=== PATIENT | male | born 1955 | race Caucasian/White ===

== ENCOUNTER 2017-10-20 07:59 | Outpatient (CLI) | payer OTHER | END 2017-10-20 09:08 | disposition home or self-care (01) | LOC: LAB 07:59 | DX: R97.20 Elevated prostate specific antigen [PSA] (principal); R51 Headache; E78.4 Other hyperlipidemia; Z13.89 Encounter for screening for other disorder; Z12.11 Encounter for screening for malignant neoplasm of colon; Z12.5 Encounter for screening for malignant neoplasm of prostate; Z72.0 Tobacco use ==

== ENCOUNTER 2017-11-27 08:40 | Outpatient (CLI) | payer OTHER | END 2017-11-27 13:16 | disposition home or self-care (01) | LOC: LAB 08:40 | DX: N41.1 Chronic prostatitis (principal); R97.20 Elevated prostate specific antigen [PSA] ==

== ENCOUNTER 2017-11-30 09:10 | Outpatient (CLI) | payer OTHER | END 2017-11-30 09:27 | disposition home or self-care (01) | LOC: SONOGRAMA 09:10 → MAMO-SONO 10:15 | DX: N41.1 Chronic prostatitis (principal); R97.20 Elevated prostate specific antigen [PSA] ==

== ENCOUNTER 2018-01-05 09:28 | Outpatient (CLI) | payer OTHER | END 2018-01-05 09:59 | disposition home or self-care (01) | LOC: LAB 09:28 | DX: Z12.5 Encounter for screening for malignant neoplasm of prostate (principal) ==

== ENCOUNTER 2018-01-12 12:01 | Outpatient (CLI) | payer OTHER | END 2018-01-12 12:04 | disposition home or self-care (01) | LOC: LAB 12:01 | DX: N18.9 Chronic kidney disease, unspecified (principal) ==

== ENCOUNTER 2018-02-03 07:33 | Outpatient (CLI) | payer OTHER | END 2018-02-03 08:34 | disposition home or self-care (01) | LOC: LAB 07:33 | DX: R97.20 Elevated prostate specific antigen [PSA] (principal); N41.1 Chronic prostatitis ==

== ENCOUNTER → 2018-05-20 06:50 | Outpatient (CLI) | payer OTHER | END | disposition home or self-care (01) | LOC: LAB 06:50 | DX: E03.8 Other specified hypothyroidism (principal); Z01.811 Encounter for preprocedural respiratory examination; Z51.81 Encounter for therapeutic drug level monitoring ==

== ENCOUNTER 2018-06-17 07:22 | Outpatient (CLI) | payer OTHER | END 2018-06-17 07:34 | disposition home or self-care (01) | LOC: LAB 07:22 | DX: E03.8 Other specified hypothyroidism (principal); Z51.81 Encounter for therapeutic drug level monitoring; Z01.811 Encounter for preprocedural respiratory examination ==

== ENCOUNTER 2019-02-17 07:22 | Outpatient (CLI) | payer OTHER | END 2019-02-17 07:30 | disposition home or self-care (01) | LOC: LAB 07:22 | DX: Z01.812 Encounter for preprocedural laboratory examination (principal); Z01.811 Encounter for preprocedural respiratory examination; Z51.81 Encounter for therapeutic drug level monitoring; E03.8 Other specified hypothyroidism ==

== ENCOUNTER → 2019-12-23 08:22 | Outpatient (CLI) | payer OTHER | END | disposition home or self-care (01) | LOC: LAB 08:22 | PROVIDERS: ATTEND Urology | DX: N40.1 Benign prostatic hyperplasia with lower urinary tract symptoms (principal); E55.9 Vitamin D deficiency, unspecified; R39.12 Poor urinary stream; F41.8 Other specified anxiety disorders; R97.20 Elevated prostate specific antigen [PSA]; N41.1 Chronic prostatitis ==

== ENCOUNTER → 2020-08-07 08:31 | Outpatient (CLI) | payer OTHER | END | disposition home or self-care (01) | LOC: LAB 08:31 | PROVIDERS: ATTEND Urology | DX: N40.0 Benign prostatic hyperplasia without lower urinary tract symptoms (principal); E55.9 Vitamin D deficiency, unspecified; F41.9 Anxiety disorder, unspecified; R97.20 Elevated prostate specific antigen [PSA]; N41.1 Chronic prostatitis ==

== ENCOUNTER → 2020-09-17 07:13 | Outpatient (CLI) | payer OTHER | END | disposition home or self-care (01) | LOC: LAB 07:13 | PROVIDERS: ATTEND Urology | DX: N40.0 Benign prostatic hyperplasia without lower urinary tract symptoms (principal); F41.8 Other specified anxiety disorders; R97.20 Elevated prostate specific antigen [PSA]; N41.1 Chronic prostatitis ==

== ENCOUNTER → 2020-09-21 | Outpatient (CLI) | payer OTHER | END | disposition home or self-care (01) | LOC: LAB 07:35 | PROVIDERS: ATTEND General Practice | DX: R07.89 Other chest pain (principal); M54.5 Low back pain; Z11.4 Encounter for screening for human immunodeficiency virus [HIV]; Z11.3 Encounter for screening for infections with a predominantly sexual mode of transmission; Z12.11 Encounter for screening for malignant neoplasm of colon; Z13.228 Encounter for screening for other metabolic disorders; Z13.29 Encounter for screening for other suspected endocrine disorder; Z13.0 Encounter for screening for diseases of the blood and blood-forming organs and certain disorders involving the immune mechanism; Z12.5 Encounter for screening for malignant neoplasm of prostate; Z11.59 Encounter for screening for other viral diseases; Z00.01 Encounter for general adult medical examination with abnormal findings; M62.830 Muscle spasm of back; R97.20 Elevated prostate specific antigen [PSA] ==

== ENCOUNTER 2020-10-23 07:35 | Outpatient (CLI) | payer OTHER | END 2020-10-23 08:07 | disposition home or self-care (01) | LOC: TOM 07:35 | PROVIDERS: ATTEND General Practice | DX: K76.0 Fatty (change of) liver, not elsewhere classified (principal); K57.90 Diverticulosis of intestine, part unspecified, without perforation or abscess without bleeding; R10.84 Generalized abdominal pain; R80.8 Other proteinuria; R97.20 Elevated prostate specific antigen [PSA]; Z12.5 Encounter for screening for malignant neoplasm of prostate; Z12.11 Encounter for screening for malignant neoplasm of colon ==

== ENCOUNTER → 2021-05-27 07:26 | Outpatient (CLI) | payer OTHER | END | disposition home or self-care (01) | LOC: LAB 07:26 | PROVIDERS: ATTEND Urology | DX: N40.0 Benign prostatic hyperplasia without lower urinary tract symptoms (principal); N48.89 Other specified disorders of penis; F41.9 Anxiety disorder, unspecified; R97.20 Elevated prostate specific antigen [PSA]; N41.1 Chronic prostatitis ==

== ENCOUNTER 2021-09-13 06:50 | Outpatient (CLI) | payer OTHER | END 2021-09-13 07:04 | disposition home or self-care (01) | LOC: LAB 06:50 | PROVIDERS: ATTEND Internal Medicine | DX: N41.9 Inflammatory disease of prostate, unspecified (principal); D64.9 Anemia, unspecified; E03.9 Hypothyroidism, unspecified; N39.0 Urinary tract infection, site not specified; K92.1 Melena; E55.9 Vitamin D deficiency, unspecified; E78.49 Other hyperlipidemia; I70.0 Atherosclerosis of aorta ==

== ENCOUNTER 2021-09-17 09:57 | Outpatient (CLI) | payer OTHER | END 2021-09-17 10:01 | disposition home or self-care (01) | LOC: LAB 09:57 | PROVIDERS: ATTEND Internal Medicine | DX: D64.9 Anemia, unspecified (principal); K92.1 Melena; E78.49 Other hyperlipidemia ==

== ENCOUNTER → 2022-04-23 06:46 | Outpatient (CLI) | payer OTHER | END | disposition home or self-care (01) | LOC: LAB 06:46 | PROVIDERS: ATTEND Internal Medicine | DX: N41.9 Inflammatory disease of prostate, unspecified (principal); D64.9 Anemia, unspecified; E03.9 Hypothyroidism, unspecified; N39.0 Urinary tract infection, site not specified; K92.1 Melena; E78.49 Other hyperlipidemia; E55.9 Vitamin D deficiency, unspecified ==

== ENCOUNTER 2022-05-01 08:34 | Outpatient (CLI) | payer OTHER | END 2022-05-01 08:36 | disposition home or self-care (01) | LOC: LAB 08:34 | PROVIDERS: ATTEND Internal Medicine | DX: D64.9 Anemia, unspecified (principal); E03.9 Hypothyroidism, unspecified; N39.0 Urinary tract infection, site not specified; K92.1 Melena; E78.49 Other hyperlipidemia; E55.9 Vitamin D deficiency, unspecified ==

== ENCOUNTER 2023-02-27 07:09 | Outpatient (CLI) | payer OTHER ==
[2023-02-27 08:23] LABS: HEMATOCRIT 46.3 % (39.0-48.0); HEMOGLOBIN 15.6 g/dL (13-16.00); MEAN CELL VOLUME 87.3 fL (80.0-100.00); MEAN CORPUSCULAR HEMOGLOBIN 29.5 pg (27.00-32.0); MEAN CORPUSCULAR HGB CONC 33.7 g/dl (32.0-36.0); PLATELET COUNT 348 K/uL (150-450); RED CELL DISTRIBUTION WIDTH 13.2 % (11.5-14.5)
[2023-02-27 08:24] LABS: PH,URINE 5.5 (5.0-8.0); URINE APPEARANCE Clear; URINE BILIRRUBIN Negative (NEGATIVE); URINE BLOOD Negative; URINE COLOR Yellow; URINE GLUCOSE Negative (NEGATIVE); URINE LEUKOCYTE Negative; URINE NITRATE Negative; URINE PROTEIN Negative (NEGATIVE)
[2023-02-27 08:27] LABS: URINE BACTERIA 15.1 uL (0.0-1933); URINE EPITHELIAL CELLS 4.9 uL (0.0-38.8); URINE RBC 7.6 uL (0.0-20.8); URINE WBC 4.6 uL (0.0-23.2)
[2023-02-27 09:03] LABS: INR 1.02; PARTIAL THROMBOPLASTIN TIME 26.8 SECONDS (22.0-34.0); PROTHROMBIN TIME 10.7 SECONDS (9.0-11.5)
[2023-02-27 09:41] LABS: CALCIUM 9.3 mg/dL (8.5-10.1); CREATININE SERUM 1.06 mg/dL (0.70-1.30); GFR 69.68; POTASSIUM 4.97 mEq/L (3.5-5.1)
== END 2023-02-27 07:10 | disposition home or self-care (01) ==
LOC: LAB 07:09
PROVIDERS: ATTEND Urology
DX: Z01.811 Encounter for preprocedural respiratory examination (principal); N40.0 Benign prostatic hyperplasia without lower urinary tract symptoms; E55.9 Vitamin D deficiency, unspecified; F41.9 Anxiety disorder, unspecified; R97.20 Elevated prostate specific antigen [PSA]; N41.1 Chronic prostatitis; Z51.81 Encounter for therapeutic drug level monitoring; E03.9 Hypothyroidism, unspecified

== ENCOUNTER 2023-10-13 07:22 | Outpatient (CLI) | payer OTHER ==
[2023-10-13 08:19] LABS: HEMATOCRIT 39.2 % (39.0-48.0); HEMOGLOBIN 13.3 g/dL (13-16.00); MEAN CELL VOLUME 85.2 fL (80.0-100.00); MEAN CORPUSCULAR HEMOGLOBIN 28.9 pg (27.00-32.0); PLATELET COUNT 376 K/uL (150-450); RED CELL DISTRIBUTION WIDTH 13.4 % (11.5-14.5)
[2023-10-13 08:21] LABS: URINE APPEARANCE Clear; URINE BILIRRUBIN Negative (NEGATIVE); URINE BLOOD Negative; URINE COLOR Yellow; URINE GLUCOSE Negative (NEGATIVE); URINE KETONE Negative (NEGATIVE); URINE LEUKOCYTE Negative; URINE NITRATE Negative; URINE PROTEIN Negative (NEGATIVE); URINE UROBILINOGEN 0.2 E.U./dl
[2023-10-13 08:25] LABS: URINE BACTERIA 16.3 uL (0.0-1933); URINE EPITHELIAL CELLS 2.9 uL (0.0-38.8); URINE RBC 2.2 uL (0.0-20.8); URINE WBC 3.5 uL (0.0-23.2)
[2023-10-13 08:30] LABS: URINE CAST 0.15 uL (0.0-1.40)
[2023-10-13 09:18] LABS: ALBUMIN 3.6 gm/dL (3.4-5.0); BILIRUBIN TOTAL 0.42 mg/dL (0.3-1.2); CALCIUM 9.3 mg/dL (8.5-10.1); CREATININE SERUM 0.94 mg/dL (0.70-1.30); GFR 79.81; GLOBULINA 3.9 G/DL (2.4-3.5); POTASSIUM 3.93 mEq/L (3.5-5.1); PROSTATIC SPECIFIC ANTIGEN 0.023 NG/ML (0.010-4.00); TOTAL PROTEIN 7.5 gm/dL (6.4-8.2)
== END 2023-10-13 07:35 | disposition home or self-care (01) ==
LOC: LAB 07:22
PROVIDERS: ATTEND Internal Medicine Hematology & Oncology
DX: R97.20 Elevated prostate specific antigen [PSA] (principal); C61 Malignant neoplasm of prostate; E78.5 Hyperlipidemia, unspecified; I10 Essential (primary) hypertension

== ENCOUNTER 2024-03-16 07:05 | Outpatient (CLI) | payer OTHER | END 2024-03-16 07:10 | disposition home or self-care (01) | LOC: TOM 07:05 | PROVIDERS: ATTEND Internal Medicine Gastroenterology | DX: K57.30 Diverticulosis of large intestine without perforation or abscess without bleeding (principal) ==

== ENCOUNTER → 2024-10-07 08:20 | Outpatient (CLI) | payer OTHER | END | disposition home or self-care (01) | LOC: LAB 08:20 | DX: R97.20 Elevated prostate specific antigen [PSA] (principal) ==